=== PATIENT | male | born 1975 | race Caucasian/White ===

== ENCOUNTER 2018-12-18 07:22 | Emergency (ER) | payer BC ==
[~2018-12-18] VITALS: Ht 188 cm; Wt 81.6 kg
[2018-12-18 07:38] VITALS: BP_SYST 112
[2018-12-18] MEDS ORDERED: ALBUTEROL SULFATE 0.083% 2.5 MG/3 ML VIAL.NEB INH ONE (08:45)
[2018-12-18 19:30] VITALS: BP_SYST 112
== END 2018-12-18 19:30 | disposition home or self-care (01) ==
LOC: SED 07:22
DX: J06.9 Acute upper respiratory infection, unspecified (principal)
CPT/HCPCS: 86710; 94640; 99283; J7613; 36415

== ENCOUNTER 2019-01-04 19:01 | Emergency (ER) | payer BC ==
[~2019-01-04] VITALS: Ht 188 cm; Wt 86.2 kg
[2019-01-04 19:19] VITALS: BP_SYST 139
--- NOTE | 2019-01-04 19:19 | NUR ---
Patient to ER bed 3 to gown for evaluation. Side rails up.
--- NOTE | 2019-01-04 19:20 | NUR ---
Jac Payne [employer] bedside for Pt eval
[2019-01-04] MEDS ORDERED: BACITRACIN 1 GM OINT TP ONE (19:30)
[2019-01-04] MEDS ORDERED: KETOROLAC TROMETHAMINE 60 MG/2 ML VIAL IM ONE (19:30)
[2019-01-04] MEDS ORDERED: LORazepam 1 MG TABLET PO ONE (19:30)
--- NOTE | 2019-01-04 19:40 | NUR ---
Pt taken to Radiology in stable condition
--- NOTE | 2019-01-04 19:50 | NUR ---
Pt back from Radiology, well tolerated
--- NOTE | 2019-01-04 20:14 | NUR ---
Dr. Crawford bedside for Pt exam
[2019-01-04 21:10] VITALS: BP_SYST 139
--- NOTE | 2019-01-04 21:10 | NUR ---
Patient given written and verbal discharge instructions and verbalizes understanding. ER MD discussed with patient the results and treatment provided. Patient in stable condition. ID arm band removed. Rx of Soma and Motrin given. Patient educated on pain management and to follow up with PMD. Pain Scale 0/10 Opportunity for questions provided and answered. Medication side effect fact sheet provided.
== END 2019-01-04 21:10 | disposition home or self-care (01) ==
LOC: SED 19:01
DX: S39.012A Strain of muscle, fascia and tendon of lower back, initial encounter (principal); S86.912A Strain of unspecified muscle(s) and tendon(s) at lower leg level, left leg, initial encounter; S46.912A Strain of unspecified muscle, fascia and tendon at shoulder and upper arm level, left arm, initial encounter; R07.89 Other chest pain; S40.212A Abrasion of left shoulder, initial encounter; V43.52XA Car driver injured in collision with other type car in traffic accident, initial encounter; Y93.89 Activity, other specified; Y92.488 Other paved roadways as the place of occurrence of the external cause; Y99.8 Other external cause status
CPT/HCPCS: 71045; 72100; 73030; 73090; 73564; 96372; 99284; J1885

== ENCOUNTER 2019-03-12 08:53 | Emergency (ER) | payer BC, OTHER ==
[~2019-03-12] VITALS: Ht 188 cm; Wt 86.2 kg
[2019-03-12 09:01] VITALS: BP_SYST 135
--- NOTE | 2019-03-12 09:30 | NUR ---
Pt triaged and placed into bed 2 accompanied by his daughter.
--- NOTE | 2019-03-12 10:16 | NUR ---
ER at bedside examining patient.
--- NOTE | 2019-03-12 10:30 | NUR ---
lab results for influenz a and b are negative. pt will be DC home shortly by MD Estrada with prescriptions. pt is otherwise healthy and stable.
[2019-03-12 10:51] VITALS: BP_SYST 135
--- NOTE | 2019-03-12 11:05 | NUR ---
Patient given written and verbal discharge instructions and verbalizes understanding. ER MD discussed with patient the results and treatment provided. Patient in stable condition. ID arm band removed. Rx of Robitussin and Naprosyn given. Patient educated on pain management and to follow up with PMD. Pain Scale 0. Opportunity for questions provided and answered. Medication side effect fact sheet provided.
== END 2019-03-12 11:05 | disposition home or self-care (01) ==
LOC: SED 08:53
DX: J11.1 Influenza due to unidentified influenza virus with other respiratory manifestations (principal)
CPT/HCPCS: 36415; 86710; 99283

== ENCOUNTER 2019-04-21 15:49 | Emergency (ER) | payer BC, OTHER ==
[~2019-04-21] VITALS: Ht 188 cm; Wt 81.6 kg
[2019-04-21 15:53] VITALS: BP_SYST 137
--- NOTE | 2019-04-21 15:55 | NUR ---
Placed in room 06 . Placed on manager monitoring, blood pressure machine and pulse oximeter. To gown for exam. Side rails up.
--- NOTE | 2019-04-21 16:05 | NUR ---
Patient brought by self, A&Ox4, pt presents to ER with palpatations, skin pink & warm, cap refill <3. VSS, pain 7/10, denies N/V/D. Patient states he was feeling dizzy, light headed, intermittent heart racing. Patient is presently under care of government relations analyst and on [facility] Monitor. Patient has a hx of A-fib. and ablasion sx.
--- NOTE | 2019-04-21 16:30 | NUR ---
ER Dr. Bautista at bedside examining patient
[2019-04-21] MEDS ORDERED: NACL 0.9% 1,000 ML IV ONE (16:31)
[2019-04-21] MEDS ORDERED: LORazepam 2 MG/ML VIAL IVP ONE (16:45)
[2019-04-21] MEDS ORDERED: ASPIRIN 81 MG TAB.CHEW PO ONE (16:45)
[2019-04-21 17:18] LABS: BASOPHILS % (AUTO) 0.5 % (0.0-2.0); EOSINOPHILS # (AUTO) 0.1 K/uL (0.0-0.4); EOSINOPHILS % (AUTO) 1.2 % (0.0-4.0); HEMATOCRIT 40.5 % (36-54); HEMOGLOBIN 13.9 g/dL (14.0-18.0); LYMPHOCYTES # (AUTO) 2.4 K/uL (1.0-5.5); LYMPHOCYTES % (AUTO) 35.9 % (20.5-51.5); MEAN CORPUSCULAR HEMOGLOBIN 30 pg (27-31); MEAN CORPUSCULAR HGB CONC 34 % (32-36); MEAN CORPUSCULAR VOLUME 88 fL (79.0-98.0); MONOCYTES # (AUTO) 0.4 K/uL (0.0-1.0); MONOCYTES % (AUTO) 5.7 % (1.7-9.3); NEUTROPHILS # (AUTO) 3.8 K/uL (1.8-7.7); NEUTROPHILS % (AUTO) 56.7 % (40.0-70.0); PLATELET COUNT (AUTO) 201 K/uL (130-430); RED BLOOD CELL COUNT(AUTO) 4.61 MIL/uL (4.2-6.2); WHITE BLOOD COUNT (AUTO) 6.7 K/uL (4.8-10.8)
[2019-04-21 17:29] LABS: ANION GAP 7 (5-15); CALCIUM 9.6 mg/dL (8.4-11.0); CHLORIDE 104 mmol/L (98-107); CREATININE 0.85 mg/dL (0.55-1.30); GLUCOSE 67 mg/dL (70-99); POTASSIUM 3.9 mmol/L (3.5-5.1); SODIUM SERUM 140 mmol/L (136-145); UREA NITROGEN, BLOOD 19 mg/dL (8-21)
[2019-04-21 17:39] LABS: ALANINE AMINOTRANSFERASE 30 U/L (12-78); ALBUMIN 4.2 g/dL (3.4-4.8); ASPARTATE AMINOTRANSFERASE 21 U/L (10-37); TOTAL BILIRUBIN 0.5 mg/dL (0.0-1.0)
[2019-04-21 17:41] LABS: GFR AFRICAN AMERICAN 125 mL/min (>90)
[2019-04-21 19:22] VITALS: BP_SYST 141
--- NOTE | 2019-04-21 19:27 | NUR ---
REASSESSMENT BY ERMD; IV OUT AND DRESSED; PATIENT STATES HIS SYMPTOMS ARE RESOLVED AND FEELS MARKEDLY IMPROVED; PREPARATIONS TO DISCHARGE; ACI GIVEN AND PATIENT INDICATED FULL UNDERSTANDING; DISCHARGED; CLERGY HERE TO SEE PATIENT PRIOR TO DC
== END 2019-04-21 19:22 | disposition home or self-care (01) ==
LOC: SED 15:49
DX: R06.4 Hyperventilation (principal); R42 Dizziness and giddiness; I48.91 Unspecified atrial fibrillation
CPT/HCPCS: 36415; 71045; 80053; 84484; 85025; 93005; 96361; 96374; 99285; J2060; J7030

== ENCOUNTER 2019-08-05 10:41 | Emergency (ER) | payer OTHER, SELFPAY ==
[~2019-08-05] VITALS: Ht 175.3 cm; Wt 72.6 kg
[2019-08-05] MEDS ORDERED: HYDROXYCHLOROQUINE SULFATE 200 MG TABLET PO ONE (10:45)
--- NOTE | 2019-08-05 11:00 | NUR ---
RECEIVED AND IN ROOM. PT ANXIOUS, ALERT, RESP UNLABORED.
[2019-08-05 11:10] VITALS: BP_SYST 120
--- NOTE | 2019-08-05 11:10 | NUR ---
DR WEISS IN TO ASSESS
[2019-08-05] MEDS ORDERED: AZITHROMYCIN 250 MG TABLET PO ONE (11:15)
--- NOTE | 2019-08-05 11:15 | NUR ---
ANXIOUS, ALERT, RESP UNLABORED, SKIN WARM AND DRY. COMMUNICATES CLEARLY IN FULL COMPLETE SENTENCES. NO DISTRESS. STATED FEELING BETTER AND THAT HE SUFFERS FROM ANXIETY AND RECENTLY STATRTED PSYCHIATRIC CARE. HIS ANXIETY WAS EXACERBATED BY RECENT RESULTS OF A COVID 19 TEXT THAT HE TOOK AT [facility] ON 07/26/2019. HE WAS ALERTED OF POSITIVE TEST ON 08/01/2019
--- NOTE | 2019-08-05 11:35 | NUR ---
Patient given written and verbal discharge instructions and verbalizes understanding. ER MD WEISS discussed with patient the results and treatment provided. Patient in stable condition. ID arm band removed. Rx given. Patient educated on pain management and to follow up with PMD. Pain Scale 0/10 Opportunity for questions provided and answered. Medication side effect fact sheet provided.
[2019-08-05 11:50] VITALS: BP_SYST 120
== END 2019-08-05 11:35 | disposition home or self-care (01) ==
LOC: EEVIPCON 10:41 → SED 10:41
DX: Z20.828 Contact with and (suspected) exposure to other viral communicable diseases (principal); I48.91 Unspecified atrial fibrillation
CPT/HCPCS: 71045; 99284; Q0144

== ENCOUNTER 2019-11-27 17:12 | Emergency (ER) | payer OTHER, SELFPAY ==
[~2019-11-27] VITALS: Ht 188 cm; Wt 86.2 kg
[2019-11-27 17:22] VITALS: BP_SYST 127
--- NOTE | 2019-11-27 17:25 | NUR ---
Pt walked in to ER with c/o right ear pain. Reports puncturing it with a q-tip. V/S stable, pt is afebrile. Currently sitting at bedside, will continue to monitor.
--- NOTE | 2019-11-27 17:35 | NUR ---
RENETTA Payne at bedside examining patient.
--- NOTE | 2019-11-27 18:01 | NUR ---
Patient given written and verbal discharge instructions and verbalizes understanding. ER MD discussed with patient the results and treatment provided. Patient in stable condition. ID arm band removed. Rx of AUGMENTIN given. Patient educated on pain management and to follow up with PMD. Pain Scale 0/10 Opportunity for questions provided and answered. Medication side effect fact sheet provided.
[2019-11-27 18:04] VITALS: BP_SYST 121
== END 2019-11-27 18:04 | disposition home or self-care (01) ==
LOC: EEVIPCON 17:12 → SED 17:12
DX: H72.91 Unspecified perforation of tympanic membrane, right ear (principal); I48.91 Unspecified atrial fibrillation
CPT/HCPCS: 99283

== ENCOUNTER 2021-02-07 17:13 | Emergency (ER) | payer MEDICAID, OTHER ==
[~2021-02-07] VITALS: Ht 185.4 cm; Wt 90.7 kg
[2021-02-07 17:13] VITALS: BP_SYST 135
--- NOTE | 2021-02-07 17:13 | NUR ---
ASSISTED PT BACK TO BED #7, TRIAGED AND REPORT GIVEN TO LEONID
--- NOTE | 2021-02-07 17:16 | NUR ---
DR CRUZ AT BEDSIDE FOR EVALUATION
--- NOTE | 2021-02-07 17:20 | NUR ---
Pt AAO and ambulatory reporting left lower leg pain. Pt reports that when he was playing basketball and that he heard a popping sound and had to sit down due to sudden onset of increased 10/10 pain. Pt has no prior medical history to report.
[2021-02-07] MEDS ORDERED: KETOROLAC TROMETHAMINE 60 MG/2 ML VIAL IM ONE (17:30)
[2021-02-07] MEDS ORDERED: IBUP-1969 PO (17:43)
[2021-02-07] MEDS ORDERED: HYDR-3917 PO (17:43)
--- NOTE | 2021-02-07 17:52 | NUR ---
Patient given written and verbal discharge instructions and verbalizes understanding. Dr. Frankie JACKSON MD discussed with patient the results and treatment provided. Patient in stable condition. ID arm band removed. Rx per MD. Patient educated on pain management and to follow up with PMD. Pain Scale 0/10. Opportunity for questions provided and answered. Medication side effect fact sheet provided.
== END 2021-02-07 17:52 | disposition home or self-care (01) ==
LOC: SED 17:13
DX: S86.812A Strain of other muscle(s) and tendon(s) at lower leg level, left leg, initial encounter (principal); I48.91 Unspecified atrial fibrillation; X50.0XXA Overexertion from strenuous movement or load, initial encounter; Y93.67 Activity, basketball; Y92.89 Other specified places as the place of occurrence of the external cause; Y99.8 Other external cause status
CPT/HCPCS: 73590; 96372; 99283; J1885

== ENCOUNTER 2022-01-13 18:52 | Emergency (ER) | payer MEDICAID ==
[~2022-01-13] VITALS: Ht 185.4 cm; Wt 89.8 kg
[~2022-01-13 18:52] MED LIST: HYDR-3917 PO; IBUP-1969 PO
[2022-01-13 19:05] VITALS: BP_SYST 122
--- NOTE | 2022-01-13 20:10 | NUR ---
Patient to RENETTA soni for evaluation. Side rails up. Report given to KAYLEE ULRICH.
--- NOTE | 2022-01-13 20:20 | NUR ---
Patient brought in complainig of right knee pain x 3 days. reports hearing a pop when he was running. He denies numbness, tingling, fever, chills, nausea, vomiting. Pain 4/10
--- NOTE | 2022-01-13 20:30 | NUR ---
ER at bedside examining patient.
[2022-01-13] MEDS ORDERED: NAPR-1172 PO (21:10)
--- NOTE | 2022-01-13 21:14 | NUR ---
in [place] discussing results with patient
--- NOTE | 2022-01-13 21:16 | NUR ---
Patient given written and verbal discharge instructions and verbalizes understanding. ER MD discussed with patient the results and treatment provided. Patient in stable condition. ID arm band removed. Rx of Naproxen given. Patient educated on pain management and to follow up with PMD. Pain Scale 0/10 Opportunity for questions provided and answered. Medication side effect fact sheet provided.
[2022-01-13 21:17] VITALS: BP_SYST 122
== END 2022-01-13 21:17 | disposition home or self-care (01) ==
LOC: SED 18:52
DX: S83.91XA Sprain of unspecified site of right knee, initial encounter (principal); Z79.899 Other long term (current) drug therapy; X58.XXXA Exposure to other specified factors, initial encounter; Y93.02 Activity, running; Y92.89 Other specified places as the place of occurrence of the external cause; Y99.8 Other external cause status
CPT/HCPCS: 73564; 99283

== ENCOUNTER 2022-06-21 05:07 | Emergency (ER) | payer MEDICAID ==
[~2022-06-21] VITALS: Ht 185.4 cm; Wt 86.2 kg
[~2022-06-21 05:07] MED LIST changes: +NAPR-1172 PO
[2022-06-21 05:25] VITALS: BP_SYST 119
--- NOTE | 2022-06-21 05:30 | NUR ---
Patient triaged and placed in waiting room. VSS and patient appears in no acute distress at this time. Accompanied by SELF, awaiting available bed, and MD notified of need for MSE.
--- NOTE | 2022-06-21 06:48 | NUR ---
COVID SAMPLE COLLECTED AND SENT TO LAB.
--- NOTE | 2022-06-21 07:10 | NUR ---
DR. HENDRIX IN WAITING ROOM TO ASSESS PT.
[2022-06-21] MEDS ORDERED: PSEU30TA36 PO (07:41)
[2022-06-21] MEDS ORDERED: ALBMDI INH (07:41)
--- NOTE | 2022-06-21 08:20 | NUR ---
DR. HENDRIX IN WAITING ROOM TO DISCUSS POC.
[2022-06-21 08:37] VITALS: BP_SYST 134
--- NOTE | 2022-06-21 08:40 | NUR ---
Patient given written and verbal discharge instructions and verbalizes understanding. ER MD discussed with patient the results and treatment provided. Patient in stable condition. ID arm band removed. Rx of SUDAFED, ALBUTEROL given. Patient educated on pain management and to follow up with PMD. Pain Scale 0/10. Opportunity for questions provided and answered. Medication side effect fact sheet provided.
== END 2022-06-21 08:40 | disposition home or self-care (01) ==
LOC: SED 05:07
DX: J40 Bronchitis, not specified as acute or chronic (principal); R05.9 Cough, unspecified; Z79.899 Other long term (current) drug therapy; Z20.822 Contact with and (suspected) exposure to COVID-19
CPT/HCPCS: 36415; 71045; 99284